=== PATIENT | female | born 1950 | race Hispanic/Latino ===

== ENCOUNTER 2023-03-24 22:50 | Emergency (ER) | payer MEDICARE ==
[~2023-03-24] VITALS: Ht 154.9 cm; Wt 53.5 kg
[~2023-03-24 22:50] MED LIST: AMLO-257 PO; ASPI-1197 PO; ATOR10 PO; CLOP-31 PO; PANT40TA PO
[2023-03-24 22:54] VITALS: BP 142/71
[2023-03-24] MEDS ORDERED: PRED20TA3 PO (23:26)
[2023-03-24] MEDS ORDERED: DIPH50 PO (23:26)
[2023-03-24] MEDS ORDERED: PREDNISONE 20 MG TABLET PO ONE (23:30)
== END 2023-03-24 23:38 | disposition home or self-care (01) ==
LOC: EDH 22:50
DX: S60.561A Insect bite (nonvenomous) of right hand, initial encounter (principal); Z79.82 Long term (current) use of aspirin; Z79.899 Other long term (current) drug therapy; W57.XXXA Bitten or stung by nonvenomous insect and other nonvenomous arthropods, initial encounter